=== PATIENT | female | born 1995 ===

== ENCOUNTER 2025-06-03 09:55 | Outpatient (AMB) | payer MEDICAID, SELFPAY ==
[2025-06-03 10:36] VITALS: BP 114/74; PULSE 74; RESP 16; TEMP 37; O2SAT 98; BMI 30.9
--- NOTE | 2025-06-03 10:36 | AMB.OBINITIA ---
Vital Signs 06/03/25 10:36 Height 1.52 m Height Method Stated Weight 71.838 kg Weight Measurement Method Standing Scale BMI 30.9 BP 114/74 Blood Pressure Source Automatic Cuff Blood Pressure Location Left Upper Arm Position Sitting Respiration 16 Pulse 74 Pulse Source Monitor Temp 98.6 F Temp Source Oral Pulse Oximetry (%) 98 Oxygen Delivery Method Room Air Allergies/Home Meds Allergies & Medications Allergies No Known Allergies Allergy (Verified 06/03/25 10:37) Medication Reconciliation vits no.126-ferrous fum 28 mg iron-folic acid 800 mcg tablet (Classic ) 1 tab PO QDAY 90 days #90 tabs 06/03/25 [Rx] Intake Visit Data Collection New Patient or Established: New Patient (never been to [facility]) Reason for Visit:: INITIAL CARE Seen by Clinical Staff ONLY (RN/MA): No 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 1. Little interest or pleasure in doing things: not at all 2. Feeling down, depressed, or hopeless: not at all Total score: 0 PHQ-9 3. Trouble falling or staying asleep, or sleeping too much: Not at all 4. Feeling tired or having little energy: Not at all 5. Poor appetite or overeating: Not at all 6. Feeling bad about yourself - or that you are a failure or have let yourself or your family down: Not at all 7. Trouble concentrating on things, such as reading the newspaper or watching television: Not at all 8. Moving or speaking so slowly that other people could have noticed? - Or the opposite - being so fidgety or restless that you have been moving around a lot more than usual: not at all 9. Thoughts that you would be better off or of hurting yourself in some way: Not at all Total score: 0 Source: Developed by Drs. Fabian Jackman, Nathalie Cosby, Refugio Casper and colleagues, with an educational aidan from [employer]. Depression screen completed yes Social History Living Situation History Marital Status: Lives With: Family Housing: House Tobacco History Smoking Status: Never smoker Second Hand Smoke Exposure: No Alcohol History Alcohol Intake: Never Domestic Abuse History Do You Feel Safe at Home: Yes History of Present Illness HPI Narrative Patient is a Senegalese-speaking woman presenting for her initial visit. This is her fourth , with her last menstrual period reported as March 18, making her approximately 11 weeks today with an estimated due date of December 23. The patient's obstetric history is significant for three previous pregnancies, with her last resulting in a premature at 28 weeks. She reports that during her last , she experienced a constant fluid leak for 20 days, despite being on medication. No other complications were reported in her previous pregnancies. Cherrie denies any current -related symptoms such as nausea or vomiting. She has not had any ultrasounds prior to this visit. The patient was previously seen at [facility] where initial labs were performed on April 25, 2025. Surgical History: - section for previous Obstetric History: - GPAL: G4 T2 L3 - Current : 11 weeks 0 days gestation, estimated due date December 23, 2025 - Third : delivery at 28 weeks due to prolonged premature rupture of membranes, experienced fluid leakage for 20 days prior to delivery despite medication - First and second pregnancies: Full-term deliveries, no complications reported Medications: - vitamins Social History: - Senegalese-speaking - Has 3 children - Toxicology screen (04-25-2025): Negative - CBC (04-25-2025): Hemoglobin 12.1 g/dL - Urinalysis (04-25-2025): 3+ WBC esterase, no other abnormalities - Panel (04-25-2025): Blood group A-positive, antibody screen negative, rubella immune, RPR non-reactive, hepatitis B and C negative, HIV negative, gonorrhea negative, chlamydia negative, SMA testing negative, cystic fibrosis testing negative - Ultrasound (06-03-2025): Gestational age 10 weeks 3 days, heartbeat 176 bpm, placenta normal appearance OB Initial Visit OB Flowsheet OB Flowsheet Initial Weight: Not Recorded Date <del>?</del> EGA Weight BP Alb Glu CTX Pres Fundal ht FHR Mov Dilation Station Effacement Hx Notes Visit Note 06/03/25 <del>?</del> 11w 0d 71.838 kg 114/74 11w IUP by LMP 03/18/25, confirmed by sono at 10w3d, FHR 176; normal initial labs; h/o delivery at 28w due to prolonged PPROM, not considered high recurrence risk. Plan: SARIAH 12/23/25, offer genetic testing (NIPT + sex), continue PNVs, routine care, f/u in 4w. Menstrual History Menstrual reliability: definite Flow: normal Menstrual regularity: regular Monthly: Yes Age at menarche: 9 On control pills at conception: No Associated symptoms (LMP): Reports fatigue and breast tenderness OB History : 4 Hx # Pregnancies: 1 # of Living Children: 2 Delivery History 1st : Child's name: YUDITH date: 03/22/13 sex: male Gestational age at delivery (weeks): 40 Delivery type: vaginal Delivery complications: NONE History of depression before or after : No 2nd : Child's name: DANIELA date: 11/18/17 sex: male Gestational age at delivery (weeks): 40 Delivery type: vaginal Delivery complications: NONE History of depression before or after : No 3rd : Child's name: JENISE date: 07/31/21 sex: female Gestational age at delivery (weeks): 28 Delivery type: vaginal History of depression before or after : No Infection History & Risk Evaluation History of STDs: none Genetic Screening & History Genetic Screening/Teratology Counseling - Includes patient, baby's father, or anyone in either family with: 1. Patient's age 35 years or older as of estimated date of delivery: No 2. Thalassemia (Estonian, Georgian, Mediterranean, or Background); MCV less than 80: No 3. Neural Tube Defect (Meningomyelocele, Spina Bifida, or Anencephaly): No 4. Congenital Heart Defect: No 5. Down Syndrome: No 6. Farhad-Sachs (Ashkenazi Zoroastrianism, Cajun, Malay Clay): No 7. Daniel Disease (Ashkenazi Zoroastrianism): No 8. Familial Dysautonomia (Ashkenazi Zoroastrianism): No 9. Sickle Cell Disease or Trait (): No 10. Hemophilia or other blood disorders: No 11. Muscular Dystrophy: No 12. Cystic Fibrosis: No 13. Saguache's Chorea: No 14. Mental Retardation/Autism: No 15. Other inherited genetic or chromosomal disorder: No 16. Maternal Metabolic Disorder (EG,TYPE 1 Diabetes, PKU): No 17. Patient or baby's father had a child with defects not listed above: No 18. Recurrent loss or a stillbirth: No 19. Medications (including supplements, vitamins, herbs or otc drugs)/illicit/recreational drugs/alcohol since last menstrual period: No 20. Any other: No Infection History 1. Live with someone with TB or exposed to TB: No 2. Rash or viral illness since last menstrual period: No 3. Hepatitis B,C: No Other (see comments) Source: [employer] Review of Systems Constitutional Constitutional: Reports fatigue Endocrine Endocrine: Reports fatigue Exam General General Appearance: alert, in no apparent distress and healthy appearing Head Head exam: atraumatic Neck Neck exam: Present normal inspection and trachea midline Chest Chest inspection: Present normal inspection and symmetric chest wall rise External exam: Present normal external exam; Absent tenderness Neuro Neurological exam: Present oriented X3 Psych Psychiatric exam: Present normal affect and normal mood Office Procedures OB Clinic LOC & Office Proc's Nursing/Assessment Patient Status: Established Patient OB Clinic Nursing Assessment: Medication Reconciliation, Update PMH in EMR and Vital Signs OB Clinic Coordination of Care: Complex Care and Chronic Disease 1-5, Consent,records obtained, informed consent, Education Simp Pt/Fam, Lab and Imaging orders, Results/Orders obtained and Staff clarify orders Special Needs: Heart tones Established Patient Charge Established Patient Point Assignment: 135 Established Patient Point Charge: EP Level 4 (120-155) Assessment & Plan Diagnosis / Problem List (1) History of premature rupture of membranes (PPROM): Status: Acute (2) Supervision of high risk , unspecified, first trimester: Status: Acute (3) Uterine size date discrepancy: Status: Acute Plan Intrauterine Assessment: Patient is at 11 weeks gestation based on last menstrual period of March 18, 2025, confirmed by ultrasound dating of 10 weeks and 3 days. Ultrasound shows normal cardiac activity with heart rate of 176 bpm. Placenta appears normal. Initial labs from April 25, 2025, show negative toxicology screen, hepatitis B and C negative, RPR non-reactive, rubella immune, blood type A positive with negative antibody screen, HIV negative, gonorrhea and chlamydia negative. CBC shows hemoglobin of 12.1. Urinalysis shows 3+ WBC esterase without other abnormalities. SMA and cystic fibrosis testing are negative. Plan: - Estimated due date: December 23, 2025 - Offer genetic testing for aneuploidy screening and sex determination - Follow-up appointment in 4 weeks - Prescribe vitamins - Continue routine care with increasing frequency of visits as progresses History of delivery Assessment: Patient reports history of delivery at 28 weeks in previous due to prolonged premature rupture of membranes (PPROM). Patient experienced fluid leakage for 20 days prior to delivery despite medication management. Given that the was due to PPROM, it is not considered a significant risk factor for recurrence in the current . Plan: - Reassure patient about low risk of recurrence - Monitor closely throughout as part of routine care
== END 2025-06-03 10:56 | disposition home or self-care (01) ==
PROVIDERS: Supervising Provider Obstetrics & Gynecology; Visit Provider Obstetrics & Gynecology
DX: O09.291 Supervision of pregnancy with other poor reproductive or obstetric history, first trimester (principal); O09.211 Supervision of pregnancy with history of pre-term labor, first trimester; Z87.59 Personal history of other complications of pregnancy, childbirth and the puerperium; O09.891 Supervision of other high risk pregnancies, first trimester; O26.841 Uterine size-date discrepancy, first trimester; Z3A.11 11 weeks gestation of pregnancy
CPT/HCPCS: 99214; G0463

== ENCOUNTER 2025-06-30 10:30 | Outpatient (AMB) | payer MEDICAID, SELFPAY ==
[2025-06-30 10:40] VITALS: BP 133/79; PULSE 87; RESP 18; TEMP 36.6; O2SAT 98; BMI 31.4
--- NOTE | 2025-06-30 10:40 | OBCLNT_ITS ---
Vital Signs 06/30/25 10:40 Height 1.52 m Height Method Stated Weight 72.688 kg Weight Measurement Method Standing Scale BMI 31.4 BP 133/79 H Blood Pressure Source Automatic Cuff Blood Pressure Location Right Upper Arm Position Sitting Respiration 18 Pulse 87 Pulse Source Monitor Temp 97.9 F Temp Source Temporal Artery Scan Pulse Oximetry (%) 98 Oxygen Delivery Method Room Air Allergies/Home Meds Allergies & Medications Allergies No Known Allergies Allergy (Verified 06/03/25 10:37) Intake Visit Data Collection New Patient or Established: Established Patient (seen at [facility] within 3 years) Reason for Visit:: OBC FOLLOW UP Do You Feel Safe at Home: Yes Authorities Contacted: N/A PCP or OBGYN visit in last 3 months: Yes Date of Last PCP or OBGYN visit: 06/03/25 Hx Now: Yes Are you currently on any form of Control: No Pain Present Currently: No Smoking Status Smoking Status: Never smoker Questionnaires PHQ-9 PHQ-2 Over the last 2 weeks, how often have you been bothered by any of the following problems? 1. Little interest or pleasure in doing things: not at all PHQ-9 8. Moving or speaking so slowly that other people could have noticed? - Or the opposite - being so fidgety or restless that you have been moving around a lot more than usual: not at all Source: Developed by Drs. Fabian Jackman, Nathalie Cosby, Refugio Casper and colleagues, with an educational aidan from [employer]. Social History Living Situation History Lives With: Family Housing: House Tobacco History Smoking Status: Never smoker Second Hand Smoke Exposure: No Alcohol History Alcohol Intake: Never Domestic Abuse History Do You Feel Safe at Home: Yes Care OB Visit Log OB Flowsheet Initial Weight: Not Recorded Date -?-?-?-?-?-?-?-?-?-?-?-?- EGA Weight BP Alb Glu CTX Pres Fundal ht FHR Mov Dilation Station Effacement Hx Notes Visit Note 06/03/25 -?-?-?-?-?-?-?-?-?-?-?-?- 11w 0d 71.838 kg 114/74 11w IUP by LMP 03/18/25, confirmed by sono at 10w3d, FHR 176; normal initial labs; h/o delivery at 28w due to prolonged PPROM, not considered high recurrence risk. Plan: SARIAH 12/23/25, offer genetic testing (NIPT + sex), continue PNVs, routine care, f/u in 4w. 06/30/25 -?-?-?-?-?-?-?-?-?-?-?-?- 14w 6d 72.688 kg 133/79 absent unknown - Patient reports experiencing pain when turning too quickly, particularly on the right side. - Described as muscle pain and ligamen t pain. - No associated nausea or vomiting rep orted. - Patient has a history of . Plan - Schedule ultrasound at [facility] in [place] due to history of - Follow-up appointment in 4 weeks - Patient to contact clinic for [facility] phone number if not contacted for ultrasound appointment SARIAH Calculator Estimated Delivery Date Method Current WG Current Estimate 12/23/25 LMP (Certain) 14w 6d Other Estimates 12/27/25 Ultrasound #1 14w 2d Notes Visit Date: 06/30/25 Last Updated by: Peter Johnson MD - Trisomy testing: Negative - sex determination: Female - heart rate: 155 bpm (normal) Assessment & Plan Diagnosis / Problem List (1) Uterine size date discrepancy: Status: Acute (2) History of premature rupture of membranes (PPROM): Status: Acute (3) Supervision of high risk , unspecified, first trimester: Status: Acute Plan Problem List - , 12 weeks and 6 days - History of - Ligament pain Assessment 4, para 1, at 14 weeks and 6 days gestation presenting for routine care. Genetic testing results are negative for trisomy, and gender is consistent with female. Patient reports right-sided pain with quick movements, consistent with round ligament pain. heart rate is 155 bpm, which is within normal range. Patient has a history of , necessitating close monitoring and timely ultrasound evaluation. Plan - Schedule ultrasound at [facility] due to history of - Follow-up appointment in 4 weeks - Patient to contact clinic for [facility] phone number if not contacted for ultrasound appointment 1. Progress Reviewed gestational age, growth, and heart rate. Planned frequent visits (every 2 weeks until 36 weeks, then weekly). 2. Instructed patient to monitor movements and report decreases immediately. 3. Testing Counseled on routine third-trimester labs per guidelines. Discussed potential need for ultrasound or monitoring based on risk factors. 4. Preeclampsia Precaution Educated on preeclampsia signs: severe headache, vision changes, right upper quadrant pain, sudden swelling. Advised urgent reporting of symptoms and discussed blood pressure monitoring if high risk. 5. Labor Precautions Reviewed labor signs: regular contractions, pelvic pressure, back pain, bleeding, or fluid leakage. Instructed to seek immediate care for these symptoms. 6. Lifestyle and Delivery Preparation Reinforced vitamins, nutrition, and safe activity. Discussed plan, pain management, and . Advised on labor preparation (e.g., hospital bag) and expectations. 7. Psychosocial Support Assessed emotional well-being and offered resources for mental health or parenting support.
== END 2025-06-30 10:56 | disposition home or self-care (01) ==
LOC: HODSOBC 10:30
PROVIDERS: Supervising Provider Obstetrics & Gynecology; Visit Provider Obstetrics & Gynecology
DX: O09.292 Supervision of pregnancy with other poor reproductive or obstetric history, second trimester (principal); O09.892 Supervision of other high risk pregnancies, second trimester; O09.212 Supervision of pregnancy with history of pre-term labor, second trimester; O26.842 Uterine size-date discrepancy, second trimester; Z3A.14 14 weeks gestation of pregnancy; Z87.59 Personal history of other complications of pregnancy, childbirth and the puerperium
CPT/HCPCS: 99214; G0463

== ENCOUNTER 2025-08-04 10:24 | Outpatient (AMB) | payer MEDICAID, SELFPAY ==
--- NOTE | 2025-08-04 10:31 | OBCLNT_ITS ---
Vital Signs 08/04/25 10:32 Height 1.52 m Height Method Stated Weight 75.75 kg Weight Measurement Method Standing Scale BMI 32.8 BP 122/77 Blood Pressure Source Automatic Cuff Blood Pressure Location Right Upper Arm Position Sitting Respiration 18 Pulse 76 Pulse Source Monitor Temp 98.1 F Temp Source Temporal Artery Scan Pulse Oximetry (%) 98 Oxygen Delivery Method Room Air Allergies/Home Meds Allergies & Medications Allergies No Known Allergies Allergy (Verified 08/04/25 10:33) Medication Reconciliation vits no.126-ferrous fum 28 mg iron-folic acid 800 mcg tablet (Classic ) 1 tab PO QDAY 90 days #90 tabs 06/03/25 [Rx Confirmed 08/04/25] Intake Visit Data Collection New Patient or Established: Established Patient (seen at [facility] within 3 years) Reason for Visit:: OBC Seen by Clinical Staff ONLY (RN/MA): No Nutritional Assistant Required: Yes Nutritional Assistant's name/title: ELOISE DURÁN MA Do You Feel Safe at Home: Yes Authorities Contacted: N/A PCP or OBGYN visit in last 3 months: Yes Date of Last PCP or OBGYN visit: 06/30/25 Hx Now: Yes Are you currently on any form of Control: No Pain Present Currently: No Pain Scale Used: Valles-Patel/Numerical Pain scale:: 0 Smoking Status Smoking Status: Never smoker Immunizations Flu Vaccine in the Last 12 Months: No Flu Vaccine Exclusion Criteria: No Exclusion Criteria Questionnaires Covid-19 Vaccine Questionnaire Has patient been vacinated for Covid-19 Have you been vacinated for Covid-19: No PHQ-9 PHQ-2 Over the last 2 weeks, how often have you been bothered by any of the following problems? 1. Little interest or pleasure in doing things: not at all 2. Feeling down, depressed, or hopeless: not at all Total score: 0 PHQ-9 3. Trouble falling or staying asleep, or sleeping too much: Not at all 4. Feeling tired or having little energy: Not at all 5. Poor appetite or overeating: Not at all 6. Feeling bad about yourself - or that you are a failure or have let yourself or your family down: Not at all 7. Trouble concentrating on things, such as reading the newspaper or watching television: Not at all 8. Moving or speaking so slowly that other people could have noticed? - Or the opposite - being so fidgety or restless that you have been moving around a lot more than usual: not at all 9. Thoughts that you would be better off or of hurting yourself in some way: Not at all Total score: 0 If you checked off any problems, how difficult have these problems made it for you to do your work, take care of things at home, or get along with other people?: not difficult at all Source: Developed by Drs. Fabian Jackman, Nathalie Cosby, Refugio Casper and colleagues, with an educational aidan from [employer]. Depression screen completed yes Social History Living Situation History Marital Status: Lives With: Family Housing: House Tobacco History Smoking Status: Never smoker Second Hand Smoke Exposure: No Alcohol History Alcohol Intake: Never Domestic Abuse History Do You Feel Safe at Home: Yes Care OB Visit Log OB Flowsheet Initial Weight: Not Recorded Date -?-?-?-?-?-?-?-?-?-?-?-?- EGA Weight BP Alb Glu CTX Pres Fundal ht FHR Mov Dilation Station Effacement Hx Notes Visit Note 06/03/25 -?-?-?-?-?-?-?-?-?-?-?-?- 11w 0d 71.838 kg 114/74 11w IUP by LMP 03/18/25, confirmed by sono at 10w3d, FHR 176; normal initial labs; h/o delivery at 28w due to prolonged PPROM, not considered high recurrence risk. Plan: [facility] 12/23/25, offer genetic testing (NIPT + sex), continue PNVs, routine care, f/u in 4w. 06/30/25 -?-?-?-?-?-?-?-?-?-?-?-?- 14w 6d 72.688 kg 133/79 absent unknown - Patient reports experiencing pain when turning too quickly, particularly on the right side. - Described as muscle pain and ligamen t pain. - No associated nausea or vomiting rep orted. - Patient has a history of . Plan - Schedule ultrasound at [facility] in [place] due to history of - Follow-up appointment in 4 weeks - Patient to contact clinic for [facility] phone number if not contacted for ultrasound appointment 08/04/25 -?-?-?-?--?-?-?-?-?-?-?-?- 19w 6d 75.75 kg 122/77 absent unknown 155 19 weeks and 16 days gestation presenting for visit. - She had mild range elevated blood pres sures at her last visit. - She denies cramping or leaking at this time. - She has an upcoming ultrasound schedul ed in August in [place] for measurements related to labor evaluation. - Ultrasound scheduled in [place] in August for measurements and labor evaluation - Glucose tolerance test ordered - to be completed within the month before next visit (fasting required, drink glucose solution, blood draw one hour after) - Follow-up appointment after ultrasound to review results and recommendations SARIAH Calculator Estimated Delivery Date Method Current WG Current Estimate 12/23/25 LMP (Certain) 19w 6d Other Estimates 12/27/25 Ultrasound #1 19w 2d Notes Visit Date: 06/30/25 Last Updated by: Peter Johnson MD - Trisomy testing: Negative - sex determination: Female - heart rate: 155 bpm (normal) Office Procedures OBC Clinic LOC & Office Proc's Nursing/Assessment Patient Status: Established Patient OB Clinic Nursing Assessment: Medication Reconciliation, Update PMH in EMR and Vital Signs OB Clinic Coordination of Care: Complex Care and Chronic Disease 1-5, Education Complex Pt/Fam, Consent,records obtained, informed consent, Results/Orders obtained and Staff clarify orders Special Needs: Heart tones Established Patient Charge Established Patient Point Assignment: 125 Established Patient Point Charge: EP Level 4 (120-155) Assessment & Plan Diagnosis / Problem List (1) Uterine size date discrepancy: Status: Acute (2) Supervision of high risk , unspecified, first trimester: Status: Acute Plan Problem List - Elevated blood pressure - labor Assessment 19-week patient with history of mild range elevated blood pressures, currently with normal blood pressure of 120/77. Patient reports no cramping or leaking. heart rate is 169 bpm, which is within normal range. Plan - Ultrasound scheduled in [place] in August for measurements and labor evaluation - Glucose tolerance test ordered - to be completed within the month before next visit (fasting required, drink glucose solution, blood draw one hour after) - Follow-up appointment after ultrasound to review results and recommendations 1. Progress Reviewed gestational age (19 weeks and 16 days), growth, and heart rate (169 bpm, normal). Planned frequent visits (every 2 weeks until 36 weeks, then weekly). 2. Instructed patient to monitor movements and report decreases immediately. 3. Testing Counseled on routine third-trimester labs per guidelines. Ordered diabetes test to be completed within the month on empty stomach. Discussed potential need for ultrasound or monitoring based on risk factors. Ultrasound scheduled in August for labor assessment. 4. Preeclampsia Precaution Educated on preeclampsia signs: severe headache, vision changes, right upper quadrant pain, sudden swelling. Advised urgent reporting of symptoms and discussed blood pressure monitoring if high risk. Blood pressure today 120/77 (improved from previously elevated readings). 5. Labor Precautions Reviewed labor signs: regular contractions, pelvic pressure, back pain, bleeding, or fluid leakage. Instructed to seek immediate care for these symptoms. Patient denied cramping or leaking. 6. Lifestyle and Delivery Preparation Reinforced vitamins, nutrition, and safe activity. Discussed plan, pain management, and . Advised on labor preparation (e.g., hospital bag) and expectations. 7. Psychosocial Support Assessed emotional well-being and offered resources for mental health or parenting support.
[2025-08-04 10:32] VITALS: BP 122/77; PULSE 76; RESP 18; TEMP 36.7; O2SAT 98; BMI 32.8
== END 2025-08-04 10:54 | disposition home or self-care (01) ==
LOC: HODSOBC 10:24
PROVIDERS: Supervising Provider Obstetrics & Gynecology; Visit Provider Obstetrics & Gynecology
DX: O09.892 Supervision of other high risk pregnancies, second trimester (principal); O26.842 Uterine size-date discrepancy, second trimester; Z3A.19 19 weeks gestation of pregnancy
CPT/HCPCS: 99214; G0463

== ENCOUNTER 2025-09-08 11:05 | Outpatient (AMB) | payer MEDICAID, SELFPAY ==
[2025-09-08 11:18] VITALS: BP 114/74; PULSE 75; RESP 14; TEMP 36.7; O2SAT 97; BMI 34.2
--- NOTE | 2025-09-08 11:18 | OBCLNT_ITS ---
Vital Signs 09/08/25 11:18 Height 1.52 m Height Method Stated Weight 78.982 kg Weight Measurement Method Standing Scale BMI 34.2 BP 114/74 Blood Pressure Source Automatic Cuff Blood Pressure Location Left Upper Arm Position Sitting Respiration 14 Pulse 75 Pulse Source Monitor Temp 98.1 F Temp Source Oral Pulse Oximetry (%) 97 Oxygen Delivery Method Room Air Allergies/Home Meds Allergies & Medications Allergies No Known Allergies Allergy (Verified 09/08/25 11:22) Medication Reconciliation vits no.126-ferrous fum 28 mg iron-folic acid 800 mcg tablet (Classic ) 1 tab PO QDAY 90 days #90 tabs 06/03/25 [Rx Confirmed 09/08/25] vits no.126-ferrous fum 28 mg iron-folic acid 800 mcg tablet (Classic ) 1 tab PO QDAY 90 days #90 tabs 09/08/25 [Rx] Immunizations Immunizations Flu Vaccine in the Last 12 Months: Yes Date of most recent flu vaccination: 09/08/25 Flu Vaccine Exclusion Criteria: Already Received Care OB Visit Log OB Flowsheet Initial Weight: Not Recorded Date -?-?-?-?-?-?-?-?-?-?-?-?- EGA Weight BP Alb Glu CTX Pres Fundal ht FHR Mov Dilation Station Effacement Hx Notes Visit Note 06/03/25 -?-?-?-?-?-?-?-?-?-?-?-?- 11w 0d 71.838 kg 114/74 11w IUP by LMP 03/18/25, confirmed by sono at 10w3d, FHR 176; normal initial labs; h/o delivery at 28w due to prolonged PPROM, not considered high recurrence risk. Plan: [facility] 12/23/25, offer genetic testing (NIPT + sex), continue PNVs, routine care, f/u in 4w. 06/30/25 -?-?-?-?-?-?-?-?-?-?-?-?- 14w 6d 72.688 kg 133/79 absent unknown - Patient reports experiencing pain when turning too quickly, particularly on the right side. - Described as muscle pain and ligamen t pain. - No associated nausea or vomiting rep orted. - Patient has a history of . Plan - Schedule ultrasound at [facility] in [place] due to history of - Follow-up appointment in 4 weeks - Patient to contact clinic for [facility] phone number if not contacted for ultrasound appointment 08/04/25 -?-?-?-?-?-?-?-?-?-?-?-?- 19w 6d 75.75 kg 122/77 absent unknown 155 19 weeks and 16 days gestation presenting for visit. - She had mild range elevated blood pres sures at her last visit. - She denies cramping or leaking at this time. - She has an upcoming ultrasound schedul ed in August in [place] for measurements related to labor evaluation. - Ultrasound scheduled in [place] in August for measurements and labor evaluation - Glucose tolerance test ordered - to be completed within the month before next visit (fasting required, drink glucose solution, blood draw one hour after) - Follow-up appointment after ultrasound to review results and recommendations [facility] Calculator Estimated Delivery Date Method Current WG Current Estimate 12/23/25 LMP (Certain) 24w 6d Other Estimates 12/27/25 Ultrasound #1 24w 2d Notes Visit Date: 06/30/25 Last Updated by: Peter Johnson MD - Trisomy testing: Negative - sex determination: Female - heart rate: 155 bpm (normal) Office Procedures [facility] LOC & Office Proc's Nursing/Assessment Patient Status: Established Patient OB Clinic Nursing Assessment: Medication Reconciliation, Update PMH in EMR and Vital Signs OB Clinic Coordination of Care: Complex Care and Chronic Disease 1-5, Consent,records obtained, informed consent, Education Simp Pt/Fam, 1 Ins Authorization, Lab and Imaging orders, Results/Orders obtained and Staff clarify orders Special Needs: Heart tones Established Patient Charge Established Patient Point Assignment: 150 Established Patient Point Charge: EP Level 4 (120-155) Injection/Vaccine Admin SQ Im Injection: Yes Immunizations flu vac ts (6mos up)-PF 45 mcg(15mcg x3)/0.5 mL IM syringe Performing Provider: Peter Johnson MD Performing Location: [facility] Administered by: Manju Raman MA on 09/08/25 11:43 Dose Route Admin Location Dispensed Lot Number Expiration Date Pack age NDC NDC Rating Officer 0.5 mL IM Right Deltoid 0.5 mL [id number] 04/06/26 11921-090-33 [id number] [employer] VIS Given Date VIS Provided VIS Publication Date 09/08/25 Single Vaccine 24 Eligibility Eligibility Date Funding Source Public Non-[facility] Assessment & Plan Diagnosis / Problem List (1) Abnormal glucose affecting : Status: Acute (2) Supervision of high risk , unspecified, third trimester: Status: Acute (3) Uterine size date discrepancy: Status: Acute
== END 2025-09-08 11:28 | disposition home or self-care (01) ==
LOC: HODSOBC 11:05
PROVIDERS: Supervising Provider Obstetrics & Gynecology; Visit Provider Obstetrics & Gynecology
DX: O09.892 Supervision of other high risk pregnancies, second trimester (principal); O26.842 Uterine size-date discrepancy, second trimester; O99.810 Abnormal glucose complicating pregnancy; Z3A.24 24 weeks gestation of pregnancy; Z23 Encounter for immunization
CPT/HCPCS: 90471; 90686; 96372; 99214; G0463; J9060

== ENCOUNTER 2025-10-05 09:47 | Outpatient (AMB) | payer MEDICAID, SELFPAY ==
[2025-10-05 10:03] VITALS: BP 120/74; PULSE 87; RESP 16; TEMP 36.4; O2SAT 97; BMI 34.7
--- NOTE | 2025-10-05 10:03 | AMB.OBPNC ---
Vital Signs 10/05/25 10:03 Height 1.52 m Height Method Stated Weight 80.286 kg Weight Measurement Method Standing Scale BMI 34.7 BP 120/74 Blood Pressure Source Automatic Cuff Blood Pressure Location Left Upper Arm Position Sitting Respiration 16 Pulse 87 Pulse Source Monitor Temp 97.6 F Temp Source Oral Pulse Oximetry (%) 97 Oxygen Delivery Method Room Air Allergies/Home Meds Allergies & Medications Allergies No Known Allergies Allergy (Verified 10/05/25 10:04) Medication Reconciliation vits no.126-ferrous fum 28 mg iron-folic acid 800 mcg tablet (Classic ) 1 tab PO QDAY 90 days #90 tabs 06/03/25 [Rx Confirmed 10/05/25] vits no.126-ferrous fum 28 mg iron-folic acid 800 mcg tablet (Classic ) 1 tab PO QDAY 90 days #90 tabs 09/08/25 [Rx Confirmed 10/05/25] Immunizations Immunizations Flu Vaccine in the Last 12 Months: No Flu Vaccine Exclusion Criteria: Refused by Patient Care OB Visit Log OB Flowsheet Initial Weight: Not Recorded Date <del>?</del> EGA Weight BP Alb Glu CTX Pres Fundal ht FHR Mov Dilation Station Effacement Hx Notes Visit Note 06/03/25 <del>?</del> 11w 0d 71.838 kg 114/74 11w IUP by LMP 03/18/25, confirmed by sono at 10w3d, FHR 176; normal initial labs; h/o delivery at 28w due to prolonged PPROM, not considered high recurrence risk. Plan: [facility] 12/23/25, offer genetic testing (NIPT + sex), continue PNVs, routine care, f/u in 4w. 06/30/25 <del>?</del> 14w 6d 72.688 kg 133/79 absent unknown - Patient reports experiencing pain when turning too quickly, particularly on the right side. - Described as muscle pain and ligament pain. - No associated nausea or vomiting reported. - Patient has a history of . Plan - Schedule ultrasound at [facility] in [place] due to history of - Follow-up appointment in 4 weeks - Patient to contact clinic for [facility] phone number if not contacted for ultrasound appointment 08/04/25 <del>?</del> 19w 6d 75.75 kg 122/77 absent unknown 155 19 weeks and 16 days gestation presenting for visit. - She had mild range elevated blood pressures at her last visit. - She denies cramping or leaking at this time. - She has an upcoming ultrasound scheduled in August in [place] for measurements related to labor evaluation. - Ultrasound scheduled in [place] in August for measurements and labor evaluation - Glucose tolerance test ordered - to be completed within the month before next visit (fasting required, drink glucose solution, blood draw one hour after) - Follow-up appointment after ultrasound to review results and recommendations 10/05/25 <del>?</del> 28w 5d 80.286 kg 120/74 absent cephalic 145 active - Cherrie Rincon is presenting for routine visit at 28 weeks and 5 days gestation. - She reports that baby is active and everything is going well with the . - Patient notes hip pain, which she understands is normal during . - She denies having contractions at this time. - Patient has a history of delivery at 28 weeks due to premature rupture of membranes (PPROM). - She had an elevated one-hour glucose test but her subsequent 3-hour glucose tolerance test was within normal limits. - Patient denies having diabetes. - Follow-up ultrasound on the 14th - Return visit in 4 weeks at approximately 32 weeks gestation - Labs to be ordered at next visit - Patient instructed to come to hospital if experiencing contractions given history of delivery [facility] Calculator Estimated Delivery Date Method Current WG Current Estimate 12/23/25 LMP (Certain) 28w 5d Other Estimates 12/27/25 Ultrasound #1 28w 1d Notes Visit Date: 10/05/25 Last Updated by: Peter Johnson MD - One-hour glucose test: Elevated - Three-hour glucose tolerance test: Within normal limits Visit Date: 06/30/25 Last Updated by: Peter Johnson MD - Trisomy testing: Negative - sex determination: Female - heart rate: 155 bpm (normal) Office Procedures [facility] Clinic LOC & Office Proc's Nursing/Assessment Patient Status: Established Patient OB Clinic Nursing Assessment: Medication Reconciliation, Update PMH in EMR and Vital Signs OB Clinic Coordination of Care: Complex Care and Chronic Disease 1-5, Consent,records obtained, informed consent, Education Simp Pt/Fam, 1 Ins Authorization, Lab and Imaging orders, Results/Orders obtained and Staff clarify orders Special Needs: Heart tones Established Patient Charge Established Patient Point Assignment: 150 Established Patient Point Charge: EP Level 4 (120-155) Assessment & Plan Diagnosis / Problem List (1) Abnormal glucose affecting : Status: Acute (2) Supervision of high risk , unspecified, third trimester: Status: Acute Plan Problem List - Borderline A1c - - Hip pain Assessment 26-year-old 4 para 2 patient at 28 weeks 5 days gestation with history of delivery at 28 weeks. Three-hour glucose tolerance test is within normal limits, ruling out gestational diabetes despite elevated one-hour glucose screening. Pre-eclampsia screening panel is negative with normal blood pressure. Borderline hemoglobin A1c of 5.9% noted, which is below the diabetic threshold of 6.4%. heart rate is normal at 147-148 bpm. Patient reports normal movement and hip pain consistent with . Patient experiences normal discomforts but requires monitoring given history of . Plan - Follow-up ultrasound on the - Return visit in 4 weeks at approximately 32 weeks gestation - Labs to be ordered at next visit - Patient instructed to come to hospital if experiencing contractions given history of delivery 1. Progress Reviewed gestational age at 28 weeks 5 days, growth, and heart rate of 147-148 bpm which is normal. Planned frequent visits with next appointment in 4 weeks at 32 weeks gestation. 2. Instructed patient to monitor movements and report decreases immediately. Counseled that as baby grows, movements may feel less frequent. 3. Testing Counseled on routine third-trimester labs per guidelines, to be ordered at next visit around 32 weeks. Discussed follow-up ultrasound scheduled for October 21. 4. Preeclampsia Precaution Educated on preeclampsia signs: severe headache, vision changes, right upper quadrant pain, sudden swelling. Advised urgent reporting of symptoms. Pre-eclampsia panel completed and negative. 5. Labor Precautions Reviewed labor signs: regular contractions described as tightening that comes and goes, pelvic pressure, back pain, bleeding, or fluid leakage. Instructed to seek immediate hospital care for these symptoms given history of delivery at 28 weeks. 6. Lifestyle and Delivery Preparation Reinforced vitamins, nutrition, and safe activity. Discussed normal hip pain during and when to be concerned. 7. Psychosocial Support Assessed emotional well-being and patient reports baby is active and everything is going well.
== END 2025-10-05 10:28 | disposition home or self-care (01) ==
LOC: HODSOBC 09:47
PROVIDERS: Supervising Provider Obstetrics & Gynecology; Visit Provider Obstetrics & Gynecology
DX: O09.893 Supervision of other high risk pregnancies, third trimester (principal); O99.810 Abnormal glucose complicating pregnancy; O09.293 Supervision of pregnancy with other poor reproductive or obstetric history, third trimester; Z87.59 Personal history of other complications of pregnancy, childbirth and the puerperium; Z3A.28 28 weeks gestation of pregnancy; Z28.21 Immunization not carried out because of patient refusal
CPT/HCPCS: 99214; G0463